=== PATIENT | female | born 1975 | race Caucasian/White ===

== ENCOUNTER → 2016-11-16 | Outpatient (CLI) | payer BC ==
[~2016-11-16] VITALS: Ht 160 cm; Wt 71.2 kg
[~2016-11-16] MED LIST: ALLEGRA 180MG180 MG PO; ATIVAN 1MG T1 MG/TAB PO; ATIVAN0.5 MG PO; B COMPLEX #11 TA1 PO; BENADRYL25 M2 PO; DESYREL 50MG50 MG PO; DEXILANT PO; FLORINEF ACETA0.1 MG PO; MELATONIN5 M1 SL; MULTI VITAMINS1 TAB PO; NEURONTIN300 MG PO; PRISTIQ 50 MG T50 MG PO; PROZAC20 MG PO; SUDAFED30 MG PO; TYLENOL 500MG500 MG PO; ULTRAM 50MG TAB50 MG PO; VITAMIN D31000 I1 PO
[2016-11-16 13:36] VITALS: BP 117/82; PULSE 78
[2016-11-16 15:05] VITALS: BP 138/95; PULSE 81
[2016-11-16 15:20] VITALS: BP 140/92; PULSE 76
== END ==
LOC: COL.RAD 13:00
DX: M54.2 Cervicalgia (principal); M54.12 Radiculopathy, cervical region; M46.82 Other specified inflammatory spondylopathies, cervical region; Z98.1 Arthrodesis status
CPT/HCPCS: J1100

== ENCOUNTER → 2017-01-09 | Outpatient (CLI) | payer BC | LOC: MHCPAIN 11:00 | DX: G89.29 Other chronic pain (principal); M47.817 Spondylosis without myelopathy or radiculopathy, lumbosacral region; M54.16 Radiculopathy, lumbar region; M53.3 Sacrococcygeal disorders, not elsewhere classified; M96.1 Postlaminectomy syndrome, not elsewhere classified; M54.81 Occipital neuralgia; M50.90 Cervical disc disorder, unspecified, unspecified cervical region; M54.12 Radiculopathy, cervical region; R51 Headache | CPT/HCPCS: G0463 ==

== ENCOUNTER → 2018-05-15 | Outpatient (CLI) | payer BC | LOC: MHCPAIN 09:26 | DX: G89.29 Other chronic pain (principal); M50.90 Cervical disc disorder, unspecified, unspecified cervical region; M54.12 Radiculopathy, cervical region; M54.81 Occipital neuralgia; R51 Headache | CPT/HCPCS: G0463 ==

== ENCOUNTER → 2018-05-24 | Outpatient (CLI) | payer BC | LOC: MHCPAIN 07:59 | DX: M54.12 Radiculopathy, cervical region (principal); M50.90 Cervical disc disorder, unspecified, unspecified cervical region | CPT/HCPCS: J1100; J2250; J3010; Q9967 ==

== ENCOUNTER → 2018-06-04 | Outpatient (CLI) | payer BC | LOC: MHCPAIN 09:19 | DX: G89.29 Other chronic pain (principal); M47.817 Spondylosis without myelopathy or radiculopathy, lumbosacral region; M53.3 Sacrococcygeal disorders, not elsewhere classified; M96.1 Postlaminectomy syndrome, not elsewhere classified; M50.90 Cervical disc disorder, unspecified, unspecified cervical region; M54.12 Radiculopathy, cervical region | CPT/HCPCS: G0463 ==

== ENCOUNTER → 2018-06-18 | Outpatient (CLI) | payer BC | LOC: MHCPAIN 10:13 | DX: M47.817 Spondylosis without myelopathy or radiculopathy, lumbosacral region (principal); M54.16 Radiculopathy, lumbar region ==

== ENCOUNTER → 2018-07-02 | Outpatient (CLI) | payer BC | LOC: MHCPAIN 09:45 | DX: G89.29 Other chronic pain (principal); M47.817 Spondylosis without myelopathy or radiculopathy, lumbosacral region; M54.16 Radiculopathy, lumbar region; M53.3 Sacrococcygeal disorders, not elsewhere classified | CPT/HCPCS: G0463 ==

== ENCOUNTER → 2018-07-05 | Outpatient (CLI) | payer BC | LOC: MHCPAIN 11:45 | DX: M47.817 Spondylosis without myelopathy or radiculopathy, lumbosacral region (principal); M54.16 Radiculopathy, lumbar region | CPT/HCPCS: J1100; J2250; J3010 ==

== ENCOUNTER → 2018-07-26 | Outpatient (CLI) | payer BC | LOC: MHCPAIN 09:00 | DX: M47.817 Spondylosis without myelopathy or radiculopathy, lumbosacral region (principal); M54.16 Radiculopathy, lumbar region | CPT/HCPCS: J1100; J2250; J3010 ==

== ENCOUNTER → 2018-09-03 | Outpatient (CLI) | payer BC | LOC: MHCPAIN 08:48 | DX: G89.29 Other chronic pain (principal); M47.817 Spondylosis without myelopathy or radiculopathy, lumbosacral region; M53.3 Sacrococcygeal disorders, not elsewhere classified | CPT/HCPCS: G0463 ==

== ENCOUNTER → 2018-09-06 | Outpatient (CLI) | payer BC | LOC: MHCPAIN 07:51 | DX: M47.817 Spondylosis without myelopathy or radiculopathy, lumbosacral region (principal); M54.16 Radiculopathy, lumbar region ==

== ENCOUNTER → 2018-09-12 | Outpatient (CLI) | payer BC | LOC: MHCPAIN 15:02 | DX: G89.29 Other chronic pain (principal); M47.817 Spondylosis without myelopathy or radiculopathy, lumbosacral region; M53.3 Sacrococcygeal disorders, not elsewhere classified | CPT/HCPCS: G0463 ==

== ENCOUNTER → 2018-09-20 | Outpatient (CLI) | payer BC | LOC: MHCPAIN 08:37 | DX: M47.817 Spondylosis without myelopathy or radiculopathy, lumbosacral region (principal); M54.16 Radiculopathy, lumbar region | CPT/HCPCS: J1040; Q9967 ==

== ENCOUNTER → 2018-12-19 | Outpatient (CLI) | payer BC | LOC: MHCPAIN 10:21 | DX: G89.29 Other chronic pain (principal); M47.817 Spondylosis without myelopathy or radiculopathy, lumbosacral region; M53.3 Sacrococcygeal disorders, not elsewhere classified; M96.1 Postlaminectomy syndrome, not elsewhere classified; M50.90 Cervical disc disorder, unspecified, unspecified cervical region; M54.12 Radiculopathy, cervical region | CPT/HCPCS: G0463 ==

== ENCOUNTER → 2020-06-01 | Outpatient (CLI) | payer BC | LOC: MC.RAD 10:58 | DX: Z12.31 Encounter for screening mammogram for malignant neoplasm of breast (principal) ==

== ENCOUNTER → 2021-05-03 | Outpatient (CLI) | payer BC | LOC: MHCPAIN 12:36 | DX: M47.812 Spondylosis without myelopathy or radiculopathy, cervical region (principal); M54.81 Occipital neuralgia; M54.12 Radiculopathy, cervical region; M96.1 Postlaminectomy syndrome, not elsewhere classified | CPT/HCPCS: G0463 ==

== ENCOUNTER → 2021-05-17 | Outpatient (CLI) | payer BC | LOC: MHCPAIN 12:18 | DX: M47.812 Spondylosis without myelopathy or radiculopathy, cervical region (principal); M54.81 Occipital neuralgia; M54.2 Cervicalgia | CPT/HCPCS: J0461; J1040; J1100; Q9967 ==

== ENCOUNTER → 2021-05-26 | Outpatient (CLI) | payer BC | LOC: COL.RAD 13:58 | DX: M47.812 Spondylosis without myelopathy or radiculopathy, cervical region (principal); Z98.890 Other specified postprocedural states | CPT/HCPCS: A9585 ==

== ENCOUNTER → 2021-06-01 | Outpatient (CLI) | payer BC | LOC: MHCPAIN 08:49 | DX: M54.81 Occipital neuralgia (principal); M54.2 Cervicalgia; R51.9 Headache, unspecified; G89.29 Other chronic pain | CPT/HCPCS: G0463 ==

== ENCOUNTER → 2023-05-15 | Outpatient (CLI) | payer OTHER | LOC: MHCPAIN 10:19 | DX: M47.892 Other spondylosis, cervical region (principal); M96.1 Postlaminectomy syndrome, not elsewhere classified; M54.2 Cervicalgia; M54.50 Low back pain, unspecified | CPT/HCPCS: G0463 ==